=== PATIENT | male | born 1970 | race Caucasian/White ===

== ENCOUNTER 2016-07-22 16:23 | Emergency (ER) | payer OTHER | END 2016-07-22 17:57 | disposition home or self-care (01) | LOC: ER 16:23 | DX: M50.30 Other cervical disc degeneration, unspecified cervical region (principal); F32.9 Major depressive disorder, single episode, unspecified; Z88.5 Allergy status to narcotic agent | CPT/HCPCS: 72040; 96372; 99283; J1170 ==

== ENCOUNTER 2016-08-06 15:13 | Observation (INO) | payer OTHER ==
--- NOTE | ~2016-08-06 | OP ---
Record Of Operation [facility] [address] [place]. [address] NAME: AYO WYATT : 68 STATUS : DIS Matt PAT#: [id number] AGE: 45 ADM/REG DATE : 08/06/16 MR#: [id number] REPORT SERV DATE: 08/19/16 DICTATED BY: ARCADIO WEBB DATE: 08/07/16 REPORT STATUS : Draft TRANSCRIBED BY: MODL DATE: 08/07/16 DATE OF PROCEDURE: 08/07/2016 PREOPERATIVE DIAGNOSES: Herniated nucleus polyposis, spinal stenosis, intractable radiculopathy C5-C6 and C6-C7. POSTOPERATIVE DIAGNOSES: Herniated nucleus polyposis, spinal stenosis, intractable radiculopathy C5-C6 and C6-C7. PROCEDURE: 1. Microscopic navigation-assisted surgery. 2. Anterior cervical diskectomy and wide foraminotomy C5-6 and C6-7. 3. Anterior interbody fusion with cortical cancellous allograft C5-C6, C6-7. 4. Anterior segmental spinal instrumentation with Venture plating, C5-6, C6-C7. SURGEON: Arcadio Webb D.O. [employer]ENT: Danilo Ram. ANESTHESIA: General. ESTIMATED BLOOD LOSS: 20 mL. INDICATION FOR SURGERY: Risks were explained. They are listed in last office note as well the history and physical. See that for detail. DESCRIPTION OF PROCEDURE: Antibiotic prophylaxis given. Neurophysiology monitoring leads inserted. The patient brought to the operative suite where general anesthetic including endotracheal intubation was administered. Ogden catheter was not necessary. He was in a supine position on fluoroscopic frame. A small bolster was placed behind the shoulders. His neck was in a minimally extended position. The scalp was painted with Betadine solution. Barrera three-point fixation attached to the skull using 60 pounds of torque in standard position. Barrera was attached to the [employer] bed. The [employer] navigational registration frame attached to the [place]. The isolation drapes were placed. The neck was scrubbed with Hibiclens solution. DuraPrep was painted. Sterile drapes applied. Please note, because of the complexity of surgery and the need to identify correct level of surgery intraoperatively as well as desire to carry out the safest and most precise dissection, we felt that intraoperative navigation would be mandatory. Please note, the one thing that I think is slightly abnormal was in the op report I kept naming the right arm and shoulder as painful, it is actually the left side that is worse than the right although he does have some bilateral . After the prep and drape an intraoperative CT scan with O-arm obtained, CT information used to register the navigational system. Record Of Operation [facility] [address] [place]. [address] NAME: AYO WYATT : 68 STATUS : DIS Matt PAT#: [id number] AGE: 45 ADM/REG DATE : 08/06/16 MR#: [id number] REPORT SERV DATE: 08/19/16 DICTATED BY: ARCADIO WEBB DATE: 08/07/16 REPORT STATUS : Draft TRANSCRIBED BY: PORFIRIO DATE: 08/07/16 With navigational assistance, I identified the C4, C5, C6 and C-7 levels. At the mid body of C6, on the left side parallel with the mid body of C6, I carried out a 2.5 to 3 cm transverse scar on the skin incision. This was a Cabrera-Dunaway type incision. The platysma was incised in line with the skin incision. The superficial layer of the deep cervical fascia released along the anterior border of sternocleidomastoid. Blunt dissection was carried out to the retropharyngeal space where the longus coli muscles were subperiosteally elevated and retracted laterally. We re-identify the correct level of surgery intraoperatively once we had the retractors in place. We also used navigational assistance to place a [place] distractor pin in the body of C6 and C7 in the midline. The microscope was sterilely draped and used throughout the remainder of the procedure. With navigational assistance, I determined the lateral boundaries of the uncinate processes of left and right side. The anterior longitudinal ligament annulus were incised. Diskectomy was carried out with the curettes and rongeurs. The entire disk and endplate complex was removed all the way back to the posterior longitudinal ligament. I used a combination of 1 and 2 mm Kerrison rongeurs as well as 2 mm bayron bur. I carried out a very generous resection of the posterior longitudinal ligament as well as wide foraminal opening left and right side. We did find on the left side a large soft tissue cartilage herniation into the left-sided C6-7 space, and there was significant nerve irritability. After the decompression and removal of disk, the width, depth, and height of the disk space was measured. After irrigation of the wound, the C6-C7 space was measured for height, depth, and width. A wedge-shaped cortical cancellous allograft was placed in the graft, was placed in the interbody space, traction was released locking the graft in good position. We then moved to the retractor of C5-6 and repeated the same identical steps with findings same except here the herniation was central into the right, and there was marked hypertrophy of the facet joint. After carrying out both disc removal and both foraminotomies in place with interbody graft, a 45 mm Venture plate was centered over the interbody spaces of L4, L5, and S1. The six holes were drilled, the locking screws inserted within, and rigid stability was obtained. Intraoperative images verified good position of the implants at C5-C6 and C6-7. Good episcopal of disk height and also good position . The wounds were irrigated. The platysma was closed with a running 3-0 Vicryl suture, subcutaneous tissue closed with 3-0 Vicryl suture. Subcuticular 4-0 PDS was used for skin closure. Sterile dressings applied. He was taken to the recovery room in satisfactory condition and tolerated procedure well. /PORFIRIO Arcadio Webb D.O. / [id number] Record Of Operation [address] [address] NAME: AYO WYATT : 68 STATUS : DIS Matt PAT#: [id number] AGE: 45 ADM/REG DATE : 08/06/16 MR#: [id number] REPORT SERV DATE: 08/19/16 DICTATED BY: ARCADIO WEBB DATE: 08/07/16 REPORT STATUS : Draft TRANSCRIBED BY: MODL DATE: 08/07/16 CC: Arcadio Webb D.O.
--- NOTE | ~2016-08-06 | PREOPHP ---
PreOp History and Physical [facility] [address] [place]. [address] NAME: AYO WYATT : 68 STATUS : ADM Matt PAT#: [id number] AGE: 45 ADM/REG DATE : 08/06/16 MR#: [id number] REPORT SERV DATE: 08/07/16 DICTATED BY: GERMÁN WEBB DATE: 08/07/16 REPORT STATUS : Draft TRANSCRIBED BY: MODL DATE: 08/07/16 CHIEF COMPLAINT: Neck pain, shoulder and arm pain, right greater than left. HISTORY OF PRESENT ILLNESS: A 45-year-old male who has had a several month history of increasing amounts of neck shoulder, arm pain. It has been treated with time, medication, therapy, and has not shown much improvement, but he has been able to tolerate for some time, but over the last six weeks, the pain has become much more intolerable. The pain is now 9/10. The pain is just so severe he cannot sleep. He cannot really use particularly his right arm due to the fact that the pain is so intolerable. He has a lot of numbness and tingling, right-sided. He has been through usual conservative care. Plain x-rays reveal spondylosis at C5-6 and C6-7. He still has normal lordotic cervical spinal alignment. The more recent MRI shows moderate to severe spinal stenosis associated with a disk osteophyte complex, C5-6 and C6-7 with bilateral foraminal impingement. He came to the office yesterday just indicating he has pain, was so out of control he could not take it any longer. He was totally exhausted. The pain is 9/10. He said he just had to do something immediately or else he was going to have to go the ER. Because of all the above circumstances and because his pain was so out of control despite outpatient pain medicines including Neurontin and hydrocodone we felt that he needed admission for IV pain control and to proceed with an anterior cervical diskectomy and foraminotomy, C5-6 and C6-7 with interbody fusion using cortical cancellous allograft and segmental instrumentation at C5 to C7. Prior to this surgery, I have gone over the risks, benefits, alternatives, and expectations. He is admitted urgently for the IV pain control and proceed with decompression of the nerves to provide relief. PAST MEDICAL HISTORY: Positive for testicular cancer, hypercholesterolemia, and he has had mild TIA. PAST SURGICAL HISTORY: He has had an orchiectomy and foot reconstructive surgery and ORIF of an ankle fracture. CURRENT MEDICATIONS: Aspirin, Flexeril, Neurontin, hydrocodone, simvastatin, and Zoloft. ALLERGIES: MORPHINE. SOCIAL HISTORY: He is . Right-hand dominant. Works it quality assurance analyst. He is a former smoker. No longer smokes and does not use any alcohol. FAMILY HISTORY: His father had coronary artery disease and at age 68 of an [place] and hypertension. His mother had COPD, diabetes, hypertension, one maternal aunt had COPD. His maternal grandmother had diabetes and a paternal aunt had COPD. REVIEW OF SYSTEMS: He denies current chest pain, pressure, or shortness of breath. He just has the intractable radiculopathy with associated numbness, tingling, and weakness. PHYSICAL EXAMINATION: VITAL SIGNS: He is 5 feet 8 inches, 205 pounds. BMI is 31.2. PreOp History and Physical [address] [address] NAME: AYO WYATT : 68 STATUS : ADM Matt PAT#: [id number] AGE: 45 ADM/REG DATE : 08/06/16 MR#: [id number] REPORT SERV DATE: 08/07/16 DICTATED BY: GERMÁN WEBB DATE: 08/07/16 REPORT STATUS : Draft TRANSCRIBED BY: PORFIRIO DATE: 08/07/16 GENERAL: He is alert, cooperative, well oriented. He does appear in acute painful distress. HEENT: Normocephalic. Pupils are equal and reactive to light. Extraocular muscles are intact. Oral exam is grossly normal. He has no thyromegaly. No carotid bruits are auscultated. No cervical adenopathy is palpated. MUSCULOSKELETAL: Cervical spine reveals normal neck alignment. He has very limited range of motion due to pain, both flexion and extension, rotation, and side bending. He has a positive distraction test. Negative Lhermitte's sign. Negative Spurling sign on the left, but positive on the right. He has a positive abducted arm sign on the right. Negative on the left. His motor strengths of the wrist flexors and wrist extensors are 4/5. His intrinsics are 5/5. The weakness is right-sided. The left side does not have the weakness. Brachioradialis and triceps are lost bilaterally. The only sensory deficit is in the right C6 distribution to light touch. Tinel sign is negative at the elbow and wrist. There is no evidence of thoracic outlet syndrome. There is no evidence of shoulder instability or impingement or underlying shoulder pathology. The lower lumbar musculoskeletal exam is grossly intact and normal. LUNGS: Clear to auscultation. HEART: Rate regular and rhythm. ABDOMEN: Soft, good bowel sounds. No peritoneal signs are noted. EXTREMITIES: There are good pulses in all four extremities. No abnormal skin lesions found. ASSESSMENT: Intractable neck pain, radiculopathy, right greater than left at C5-6 and C6-7. RECOMMENDATION: As listed above. /LAWANDAL Germán Webb D.O. / [id number] CC: Germán Webb D.O.
[2016-08-06 16:22] LABS: BASOPHILS 0.3 %; BASOPHILS ABSOLUTE 0.02 10/3/uL (0.0-0.16); EOSINOPHILS 4.6 %; EOSINOPHILS ABSOLUTE 0.33 10/3/uL (0.0-0.53); HEMATOCRIT 42.5 % (40.0-51.0); HEMOGLOBIN 14.4 g/dL (13.6-17.8); IMMATURE GRANULOCYTES 0.3 %; IMMATURE GRANULOCYTES ABSOLUTE 0.02 10/3/uL (0.0-0.11); LYMPHOCYTES ABSOLUTE 1.99 10/3/uL (0.67-4.30); MEAN CORPUS HGB CONC 33.9 g/dL (32.0-36.0); MEAN CORPUSCULAR HEMOGLOB 33.3 pg (26.0-34.0); MEAN CORPUSCULAR VOLUME 98.4 fL (80-100); MEAN PLATELET VOLUME 9.7 fL (9.2-13.0); MONOCYTES 6.8 %; MONOCYTES ABSOLUTE 0.48 10/3/uL (0.21-1.20); NEUTROPHILS ABSOLUTE 4.26 10/3/uL (2.02-8.40); PLATELET COUNT 190 10/3/uL (150-400); RBC DISTRIBUTION WIDTH 12.6 % (12.0-16.0); RED CELL COUNT 4.32 10/6/uL (4.7-6.1); WHITE BLOOD CELLS 7.1 10/3/uL (4.5-10.5)
[2016-08-06 16:26] LABS: MANUAL DIFF NO %
[2016-08-06 16:59] LABS: BUN (BLOOD UREA NITROGEN) 13 MG/DL (6-23); CHLORIDE, SERUM 107 MMOL/L (96-112); CO2 (CARBON DIOXIDE) 28 MMOL/L (24-34); CREATININE 1.05 MG/DL (0.70-1.30); GFR AFRICAN AMERICAN 98 ML/MIN (>=60); GFR NON AFRICAN AMERICAN 85 ML/MIN (>=60); GLUCOSE, SERUM 121 MG/DL (60-99); SODIUM, SERUM 141 MMOL/L (135-148)
[2016-08-06 17:01] LABS: POTASSIUM, SERUM 4.2 MMOL/L (3.5-5.3)
[2016-08-06] MEDS ORDERED: NEUR300 PO ×2 (19:34→22:34)
[2016-08-06] MEDS ORDERED: ULTRAM50 PO ×2 (19:35→22:35)
[2016-08-06] MEDS ORDERED: FLEXERIL5 MG PO (19:35)
[2016-08-06] MEDS ORDERED: ZOCOR20 PO ×2 (19:36→22:35)
[2016-08-06] MEDS ORDERED: ZOL100 PO ×2 (19:36→22:35)
[2016-08-06 21:33] LABS: WBC (NOT ORDERED) (RFLEX) 0 (0-5)
[2016-08-06 21:50] LABS: ASCORBIC ACID (UR NOT ORDER) NEG (NEG); BILIRUBIN, URINE NEGATIVE (NEG); KETONE, URINE NEGATIVE (NEG); LEUKOCYTE ESTERASE(NOT OR NEG (NEG)
[2016-08-06] MEDS ORDERED: FLEXERIL PO (22:33)
[2016-08-06] MEDS ORDERED: ASAB PO (22:35)
== END 2016-08-07 12:04 | disposition home or self-care (01) ==
LOC: 2SO 15:13
PROVIDERS: Orthopaedic Surgery Orthopaedic Surgery of the Spine
PROC: 0RB30ZZ Excision of Cervical Vertebral Disc, Open Approach (ICD-10-PCS; principal; 2016-08-07 17:00)
PROC: 0RG20A0 Fusion of 2 or more Cervical Vertebral Joints with Interbody Fusion Device, Anterior Approach, Anterior Column, Open Approach (ICD-10-PCS; 2016-08-07 17:00)
DX: M50.122 Cervical disc disorder at C5-C6 level with radiculopathy (principal); M50.123 Cervical disc disorder at C6-C7 level with radiculopathy; M48.02 Spinal stenosis, cervical region; E78.00 Pure hypercholesterolemia, unspecified; Z86.73 Personal history of transient ischemic attack (TIA), and cerebral infarction without residual deficits; Z85.47 Personal history of malignant neoplasm of testis; Z87.891 Personal history of nicotine dependence; Z88.5 Allergy status to narcotic agent; Z98.890 Other specified postprocedural states
CPT/HCPCS: 71020; 80048; 81001; 82962; 85025; 87641; 88304; 88311; 93005; 96374; A9270-GY; C1713; C1768; G0378; J0690; J1170; J2250; J2405; J2710; J3010